=== PATIENT | female | born 1985 | race African-American/Black ===

== ENCOUNTER 2020-04-30 10:11 | Emergency (ER) | payer MEDICAID ==
[~2020-04-30] VITALS: Ht 165.1 cm; Wt 50.0 kg
[2020-04-30 10:15] VITALS: BP 144/75
[2020-04-30] MEDS ORDERED: KETOROLAC 30MG/ML VIAL IM ONE (11:00)
== END 2020-04-30 12:11 | disposition home or self-care (01) ==
LOC: ER 10:11
DX: M54.5 Low back pain (principal); V49.49XA Driver injured in collision with other motor vehicles in traffic accident, initial encounter; Y93.89 Activity, other specified; Y92.89 Other specified places as the place of occurrence of the external cause; Y99.8 Other external cause status
CPT/HCPCS: 71045; 96372; 99283; J1885